=== PATIENT | female | born 1965 | race African-American/Black ===

== ENCOUNTER 2016-09-08 22:34 | Observation (INO) | payer OTHER ==
[~2016-09-08 22:34] MED LIST: ALBU6.7H INH; CARV12.52 PO; DARU800T PO; ELVITAB PO; LISI-360 PO; PREG100 PO; SPAC1MIS6; SULF-154 PO; ZOVI200C24 PO
[2016-09-08 22:42] VITALS: BP 193/80; PULSE 97; RESP 18; TEMP 97.8; O2SAT 99
[2016-09-08] MEDS ORDERED: ALBU6.7H INH (23:01)
[2016-09-08] MEDS ORDERED: LISI10TA3 PO (23:02)
[2016-09-08] MEDS ORDERED: CARV12.52 PO (23:02)
[2016-09-08] MEDS ORDERED: LYRI100C PO (23:03)
[2016-09-08] MEDS ORDERED: DARU800T PO (23:03)
[2016-09-08] MEDS ORDERED: ELVI1TAB3 PO (23:04)
[2016-09-08 23:05] VITALS: BP 190/111; PULSE 64; RESP 22; O2SAT 97
[2016-09-08 23:12] VITALS: O2SAT 97
[2016-09-08] MEDS ORDERED: ASPIRIN 81 MG CHEW TAB PO ONE (23:15)
[2016-09-08] MEDS ORDERED: SODIUM CHLORIDE 0.9% FLUSH 5 ML FLUSH IVF PRN (23:15)
[2016-09-08] MEDS: NITROGLYCERIN 0.4 MG SL 25 TABS/BTL SL SCH ×3 (23:20→23:26)
[2016-09-08 23:46] VITALS: BP 159/97
--- NOTE | 2016-09-08 23:47 | RADRPT ---
EXAM DATE/TIME: 09/08/2016 23:25 [facility] COMPARISON: CHEST SINGLE AP, December 08, 2015, 10:35. INDICATIONS : Shortness of breath with chest pain. MEDICAL HISTORY : Chronic obstructive pulmonary disease. Asthma SURGICAL HISTORY : section. Hysterectomy. ENCOUNTER: Initial ACUITY: 1 day PAIN SCORE: 6/10 LOCATION: Bilateral chest FINDINGS: A single view of the chest demonstrates the lungs to be symmetrically aerated without evidence of mas s, infiltrate or effusion. The cardiomediastinal contours are unremarkable. Osseous structures are intact. CONCLUSION: The lungs are clear. Jeremías Hsu MD on September 08, 2016 at 23:45 Board Certified Radiologist. This report was verified electronically.
--- NOTE | 2016-09-08 23:48 | PD ---
HPI Chief Complaint: Chest Pain Time Seen by Provider: 23:08 Travel History International Travel<30 days: No Contact w/Intl Traveler<30days: No Traveled to known affect area: No History of Present Illness HPI 50 year-old female presents to the emergency department by private transportation for complaint of left-sided chest pain radiating to the left upper extremity since 9:30 PM. Patient took 81 mg of aspirin prior to arrival to the emergency department. Patient notes a taking a deep breath worsens the pain as well as palpation of the anterior chest wall. No prior history of CAD. Patient rates pain 10 over 10 in intensity. Patient is unable to identify alleviating factors. Patient has history of hypertension dyslipidemia diabetes COPD HIV CVA sleep apnea and migraines. PFSH Past Medical History Narrative Medical hypertension dyslipidemia diabetes COPD HIV CVA sleep apnea migraines Asthma: Yes Autoimmune Disease: No Blood Disorders: No Cancer: Yes (Cervical, cone bx) Cardiovascular Problems: Yes (TACHYCARDIA) COPD: Yes Cerebrovascular Accident: Yes Diabetes: Yes (INSULIN DEPENDENT) Patient Takes Glucophage: No Diminished Hearing: No Endocrine: Yes Gastrointestinal Disorders: Yes (SBO) GERD: No Genitourinary: No Headaches: Yes Hiatal Hernia: No Hypertension: Yes Immune Disorder: Yes ( HIV) Implanted Vascular Access Dvce: No Musculoskeletal: No Neurologic: Yes (Neuropathy (R) leg) Psychiatric: No Reproductive: No Respiratory: Yes (PNA/COPD/ASTHMA) Immunizations Current: Yes Migraines: Yes Seizures: Yes Sleep Apnea: Yes (CPAP at night) Thyroid Disease: No Ulcer: No Tetanus Vaccination: > 5 Years Influenza Vaccination: Yes ?: Unknown Menopausal: Yes : 4 Para: 3 Miscarriage: 1 Past Surgical History Abdominal Surgery: Yes (SBO w/ resection & appy) AICD: No Appendectomy: Yes Arteriovenous Shunt: No Cardiac Surgery: No Section: Yes Cholecystectomy: Yes Ear Surgery: Yes Endocrine Surgery: No Eye Surgery: No Genitourinary Surgery: No Gynecologic Surgery: Yes ( & HYSTERECTOMY) Hysterectomy: Yes Insulin Pump: No Joint Replacement: No Neurologic Surgery: No Oral Surgery: No Pacemaker: No Thoracic Surgery: No Tympanostomy Tube: Yes ((R) tube removed) Other Surgery: Yes Social History Alcohol Use: No Tobacco Use: No Substance Use: No Allergies-Medications (Allergen,Severity, Reaction): Coded Allergies: Penicillin (Verified Allergy, Severe, RASH, TONGUE SWELLS, 09/08/16) Tolerates Rocephin Ultram (Verified Allergy, Intermediate, ABDOMINAL PAIN, 09/08/16) Codeine (Verified Allergy, Mild, VOMITING, 09/08/16) Tomato (Verified Allergy, Mild, RASH, 09/08/16) *MDRO Multi-Drug Resistant Organism (Verified Adverse Reaction, Unknown, ) MRSA (buttock wound) - 11/24/08 MRSA (sputum) - 09/23/09 MRSA PCR (nares) negative - 12/02/15 & 12/06/15 Cleared per Infection Control Reported Meds & Prescriptions Reported Meds & Active Scripts Active Reported Genvoya (Xhauicopbtok-Xvpswoqgfy-Jbtpondhwauj-Tenofvir) [id number] Mg Tab 1 Tab PO DAILY Lyrica (Pregabalin) 100 Mg Cap 100 Mg PO DAILY Prezista (Darunavir) 800 Mg Tab 800 Mg PO DAILY Lisinopril 10 Mg Tab 10 Mg PO BID Carvedilol 12.5 Mg Tab 12.5 Mg PO BID Proventil Hfa 6.7 GM Inh (Albuterol Sulfate) 90 Mcg/Act Aer 1 Puff INH Q4H PRN Review of Systems Except as stated in HPI: all other systems reviewed are Neg Physical Exam Narrative GENERAL: Well-developed well-nourished anxious appearing female in no respiratory distress SKIN: Warm and dry. HEAD: Normocephalic. EYES: No scleral icterus. No injection or drainage. NECK: Supple, trachea midline. No JVD or lymphadenopathy. CARDIOVASCULAR: Regular rate and rhythm without murmurs, gallops, or rubs. Chest wall: No ecchymosis no induration no erythema no vesicular rash no abrasion no crepitus no subcutaneous emphysema reproducible tenderness to direct palpation of the left anterior chest wall that reproduces and exacerbates pain of presentation RESPIRATORY: Breath sounds equal bilaterally. No accessory muscle use. GASTROINTESTINAL: Abdomen soft, non-tender, nondistended. MUSCULOSKELETAL: No cyanosis, or edema. Bilateral radial and dorsalis pedis pulses 2+ to palpation BACK: Nontender without obvious deformity. No CVA tenderness. Data Data Last Documented VS Vital Signs Date Time Temp Pulse Resp B/P Pulse Ox O2 Delivery O2 Flow Rate FiO2 09/08/16 23:46 159/97 09/08/16 23:46 98 Room Air 09/08/16 23:05 64 22 09/08/16 22:42 97.8 Orders Electrocardiogram (09/08/16 23:08) Basic Metabolic Panel (Bmp) (09/08/16 23:08) Ckmb (Isoenzyme) Profile (09/08/16 23:08) Complete Blood Count With Diff (09/08/16 23:08) Magnesium (Mg) (09/08/16 23:08) Prothrombin Time / Inr (Pt) (09/08/16 23:08) Act Partial Throm Time (Ptt) (09/08/16 23:08) Troponin I (09/08/16 23:08) Chest, Single Ap (09/08/16 23:08) Ecg Monitoring (09/08/16 23:08) Bilateral Bp Monitoring (09/08/16 23:08) Iv Access Insert/Monitor (09/08/16 23:08) Oximetry (09/08/16 23:08) Oxygen Administration (09/08/16 23:08) Aspirin Chew (Aspirin Chew) (09/08/16 23:15) Sodium Chloride 0.9% Flush (Ns Flush) (09/08/16 23:15) Nitroglycerin Sl (Nitrostat Sl) (09/08/16 23:15) CKMB (09/08/16 23:15) CKMB% (09/08/16 23:15) Nitroglycerin 2% Oint (Nitroglycerin 2% (09/09/16 00:45) Labs Laboratory Tests Test 09/08/16 23:15 White Blood Count 7.3 TH/MM3 Red Blood Count 4.68 MIL/MM3 Hemoglobin 13.2 GM/DL Hematocrit 39.6 % Mean Corpuscular Volume 84.7 FL Mean Corpuscular Hemoglobin 28.2 PG Mean Corpuscular Hemoglobin 33.3 % Concent Red Cell Distribution Width 14.6 % Platelet Count 176 TH/MM3 Mean Platelet Volume 11.3 FL Neutrophils (%) (Auto) 29.4 % Lymphocytes (%) (Auto) 61.6 % Monocytes (%) (Auto) 7.8 % Eosinophils (%) (Auto) 0.4 % Basophils (%) (Auto) 0.8 % Neutrophils # (Auto) 2.2 TH/MM3 Lymphocytes # (Auto) 4.5 TH/MM3 Monocytes # (Auto) 0.6 TH/MM3 Eosinophils # (Auto) 0.0 TH/MM3 Basophils # (Auto) 0.1 TH/MM3 CBC Comment AUTO DIFF Differential Comment AUTO DIFF CONFIRMED Prothrombin Time 10.7 SEC Prothromb Time International 1.0 RATIO Ratio Activated Partial 24.7 SEC Thromboplast Time Sodium Level 142 MEQ/L Potassium Level 4.7 MEQ/L Chloride Level 112 MEQ/L Carbon Dioxide Level 21.1 MEQ/L Anion Gap 9 MEQ/L Blood Urea Nitrogen 21 MG/DL Creatinine 1.38 MG/DL Estimat Glomerular Filtration 49 ML/MIN Rate Random Glucose 94 MG/DL Calcium Level 8.9 MG/DL Magnesium Level 1.8 MG/DL Total Creatine Kinase 528 U/L Creatine Kinase MB 2.4 NG/ML Creatine Kinase MB % 0.5 % Troponin I LESS THAN 0.02 NG/ML MDM Medical Decision Making Medical Screen Exam Complete: Yes Emergency Medical Condition: Yes Medical Record Reviewed: Yes Interpretation(s) EKG normal sinus rhythm no acute ST elevation or injury pattern change noted Differential Diagnosis Chest pain, ACS, VA, atypical chest pain, PE, shingles, pleurisy, costochondritis, pneumonia, pneumothorax, esophageal spasm Narrative Course Patient placed on dispatch clerk IV access obtained patient administered aspirin and several nitroglycerin @ 12:35 patient reports she feels much improved Diagnosis Primary Impression: Chest pain Additional Impression: Renal insufficiency Delores Jones MD Sep 08, 2016 23:48
[2016-09-08 23:56] LABS: AUTOMATED NEUTROPHIL # 2.2 TH/MM3 (1.8-7.7); BASOPHIL # 0.1 TH/MM3 (0-0.2); BASOPHIL % 0.8 % (0.0-2.0); EOSINOPHIL % 0.4 % (0.0-4.0); HEMATOCRIT 39.6 % (35.0-46.0); LYMPH % 61.6 % (9.0-44.0); LYMPHOCYTE # 4.5 TH/MM3 (1.0-4.8); MEAN CELL VOLUME 84.7 FL (80.0-100.0); MEAN CORPUSCULAR HEMOGLOBIN 28.2 PG (27.0-34.0); MEAN CORPUSCULAR HGB CONC 33.3 % (32.0-36.0); MONO % 7.8 % (0.0-8.0); NEUT % 29.4 % (16.0-70.0); PLATELET COUNT 176 TH/MM3 (150-450); RED BLOOD COUNT 4.68 MIL/MM3 (4.00-5.30); RED CELL DISTRIBUTION WIDTH 14.6 % (11.6-17.2); WHITE BLOOD COUNT 7.3 TH/MM3 (4.0-11.0)
[2016-09-09] VITALS (9 sets, daily range): BP systolic 136–176; BP diastolic 75–108; PULSE 54–62; RESP 14–22; TEMP 97.8; O2SAT 96–98
[2016-09-09 00:02] LABS: HEMO FLAGS AUTO DIFF
[2016-09-09 00:11] LABS: APTT (PATIENT) 24.7 SEC (24.3-30.1); PROTHROMBIN TIME - PATIENT 10.7 SEC (9.8-11.6)
[2016-09-09 00:23] LABS: ANION GAP 9 MEQ/L (5-15); BICARBONATE 21.1 MEQ/L (21.0-32.0); BLOOD UREA NITROGEN 21 MG/DL (7-18); CHLORIDE 112 MEQ/L (98-107); CREATINE KINASE 528 U/L (26-192); GLOMERULAR FILTRATION RATE 49 ML/MIN (>89); MAGNESIUM 1.8 MG/DL (1.5-2.5); POTASSIUM 4.7 MEQ/L (3.5-5.1); SODIUM (NA) 142 MEQ/L (136-145)
[2016-09-09 00:36] LABS: CKMB 2.4 NG/ML (0.5-3.6)
[2016-09-09 00:38] LABS: SCAN/DIFF AUTO DIFF CONFIRMED
[2016-09-09] MEDS ORDERED: NITROGLYCERIN 2% OINT 1 GM PACKET TOPICAL ONE (00:45)
[2016-09-09] MEDS ORDERED: SODIUM CHLORID 0.9% 500 ML INJ 500 ML IV ONE (01:15)
[2016-09-09] MEDS ORDERED: SODIUM CHLORIDE 0.9% FLUSH 5 ML FLUSH IVF PRN ×2 (01:30)
[2016-09-09 03:26] LABS: CREATINE KINASE 400 U/L (26-192)
[2016-09-09 06:15] LABS: CREATINE KINASE 437 U/L (26-192)
[2016-09-09 06:27] LABS: CKMB 1.6 NG/ML (0.5-3.6)
[2016-09-09] MEDS: NITROGLYCERIN 2% OINT 1 GM PACKET TOP SCH ×2 (07:05→12:00)
[2016-09-09] MEDS ORDERED: SODIUM CHLORIDE 0.9% FLUSH 5 ML FLUSH IVF SCH ×2 (09:00)
[2016-09-09] MEDS ORDERED: LYRI100C PO (09:13)
[2016-09-09] MEDS ORDERED: ADVI200C5 PO (09:14)
[2016-09-09] MEDS ORDERED: RESP: ALBUTEROL 2.5 MG/IPRATROPIUM 0.5 MG NEB (PRN) INH (10:00)
[2016-09-09] MEDS ORDERED: IBUPROFEN 600 MG TAB PO ONE (10:00)
[2016-09-09] MEDS ORDERED: cloNIDine HCL 0.1 MG TAB PO PRN (10:00)
[2016-09-09] MEDS ORDERED: DARUNAVIR 800 MG TAB PO SCH (10:00)
[2016-09-09] MEDS ORDERED: LISINOPRIL 10 MG TAB PO SCH (11:00)
--- NOTE | 2016-09-09 12:18 | EKG ---
Date Performed: 09/08/2016 Time Performed: 22:56:19 PTAGE: 50 years EKG: Sinus rhythm NORMAL ECG PREVIOUS TRACING : 11/29/2015 17.03 DOCTOR: Doug Sheppard Interpretating Date/Time 09/09/2016 12:16:41
--- NOTE | 2016-09-09 12:23 | EKG ---
Date Performed: 09/09/2016 Time Performed: 02:32:46 PTAGE: 50 years EKG: SINUS BRADYCARDIA SEPTAL MYOCARDIAL INFARCTION PROBABLE LATERAL MYOCARDIAL INFARCTION NONSP ECIFIC ST&T WAVE CHANGES ABNORMAL ECG PREVIOUS TRACING : 09/08/2016 22.56 DOCTOR: Doug Sheppard Interpretating Date/Time 09/09/2016 12:23:04
[2016-09-09] MEDS ORDERED: REGADENOSON INJ 0.4 MG/5 ML SYR ONE (12:24)
--- NOTE | 2016-09-09 12:26 | EKG ---
Date Performed: 09/09/2016 Time Performed: 04:04:34 PTAGE: 50 years EKG: SINUS BRADYCARDIA NONSPECIFIC T-WAVE ABNORMALITY BORDERLINE ECG PREVIOUS TRACING : 09/09/2016 02.32 DOCTOR: Doug Sheppard Interpretating Date/Time 09/09/2016 12:24:20
--- NOTE | 2016-09-09 12:26 | EKG ---
Date Performed: 09/09/2016 Time Performed: 05:19:26 PTAGE: 50 years EKG: SINUS BRADYCARDIA NONSPECIFIC T-WAVE ABNORMALITY BORDERLINE ECG PREVIOUS TRACING : 09/09/2016 02.32 DOCTOR: Doug Sheppard Interpretating Date/Time 09/09/2016 12:25:17
[2016-09-09] MEDS ORDERED: PREGABALIN 100 MG CAP PO SCH (13:00)
--- NOTE | 2016-09-09 13:50 | TR ---
Date Performed: 09/09/2016 Time Performed: 12:35:49 DOCTOR: Doug Sheppard DRUG LIST: CLINICAL HISTORY: CHEST PAIN REASON FOR TEST: CHEST PAIN REASON FOR ENDING: OBSERVATION: CONCLUSION: Lexiscan stress test was performed under standard four minute protocol. Radionuclide was injected one minute prior to ending the test. Developed racing heart, warm feeling and headache; blood pressure was mildly elevated. No electrocardiographic abnormalities were present to suggest is chemia. Recovery was quick and uneventful with resolution of symptoms, blood pressure returned to nor mal. Nuclear imaging and interpretation are pending. COMMENTS:
--- NOTE | 2016-09-09 13:55 | RADRPT ---
EXAM DATE/TIME: 09/09/2016 11:51 [facility] COMPARISON: MYOCARDIAL PERF PHARM SPECT, GATED W/EF, September 24, 2013, 9:09. INDICATIONS : Left sided chest pain radiating to left arm. Angina. DOSE: 32.1 mCi Tc99m Myoview at stress. 9.6 mCi Tc99m Myoview at rest. 0.4 mg Lexiscan STRESS SYMPTOMS: Heart racing, warm feeling and headache. EJECTION FRACTION: 59% MEDICAL HISTORY : HIV. Hypertension. Diabetes mellitus type 2. SURGICAL HISTORY : Appendectomy. Cholecystectomy. Hysterectomy. ENCOUNTER: Initial ACUITY: 1 day PAIN SCALE: 10/10 LOCATION: Left chest TECHNIQUE: The patient underwent pharmacologic stress with infusion of prescribed dose. Continuous ECG tracing was monitored during stress. Gated SPECT imaging was performed after stress and conventional SPECT i maging was performed at rest. The examination was performed on a SPECT/CT scanner, both attenuation and non-corrected datasets were reviewed. FINDINGS: DISTRIBUTION: The maximum perfused segment at stress is in the anterolateral wall. PERFUSION STUDY: The pattern of perfusion at stress is within normal limits. GATED STUDY: There is intact wall motion and thickening without hypokinetic or dyskinetic segments. CONCLUSION: 1. No left ventricle perfusion abnormality is identified. 2. No wall motion abnormality is identified. Calculated ejection fraction is 59%. RISK CATEGORY: Low (<1% Annual Mortality Rate) Maurice Wallis MD on September 09, 2016 at 13:51 Board Certified Radiologist. This report was verified electronically.
[2016-09-09] MEDS ORDERED: GENVOYA PO SCH (16:00)
[2016-09-09] MEDS ORDERED: AMLO5TAB2 PO (16:53)
--- NOTE | 2016-09-09 16:54 | HHI.DCPOC ---
Discharge Care Plan Diagnosis: (1) Chest pain (2) Hypertension (3) Renal insufficiency Goals to Promote Your Health * To prevent worsening of your condition and complications * To maintain your health at the optimal level Directions to Meet Your Goals Take your medications as prescribed Follow your dietary instruction Follow activity as directed Keep your appointments as scheduled Take your immunizations and boosters as scheduled If your symptoms worsen call your PCP, if no PCP go to Urgent Care Center or Emergency Room Smoking is Dangerous to Your Health. Avoid second hand smoke Call the 24-hour hour crisis hotline for domestic abuse at Jay Valle Sep 09, 2016 16:54
[2016-09-09] MEDS ORDERED: CARVEDILOL 12.5 MG TAB PO SCH (21:00)
--- NOTE | 2016-09-11 09:33 | MH ---
cc: ARABELLA PALM DATE OF ADMISSION: 09/09/2016 CHIEF COMPLAINT Chest pain HISTORY OF PRESENT ILLNESS 50-year-old female who presents to the ED via private vehicle with complaint of following a tightness and left upper chest region to left shoulder around 2119 last evening. She was getting out of the shower when it occurred. It continued lasted she got into the emergency room. She states she was given sublingual nitroglycerin in the emergency room and then it resolved pretty soon after that. She believes it lasted about an hour. She was a little nauseous, there is no diaphoresis. She states it really hurt when that doctor pressed on her chest in the emergency room. Denies history of coronary artery disease. She believes she had a stress test a couple of years ago and that it was okay. Denies recent illnesses. The patient has been compliant with medications. PAST HISTORY Hypertension. Sleep apnea. She has had pneumonia several times. Chronic obstructive pulmonary disease. HIV diagnosed in 1988. She has post herpetic neuralgia her right leg and takes Lyrica for this. Denies diabetes, hyperlipidemia and known coronary artery disease. FAMILY HISTORY Her father had onset coronary artery disease in his 40s, he at age 75 of myocardial infarction. SOCIAL HISTORY She is a nonsmoker, denies alcohol or illicit drugs. PAST SURGICAL HISTORY Small bowel obstruction with resection in 1985 when she was 20, Hysterectomy cholecystectomy ALLERGIES CODEINE PENICILLIN ULTRAM TOMATOES HISTORY OF MRSA CURRENT MEDICATIONS 1. Lisinopril. 2. Lyrica. 3. Prezista 4. Genvoya 5. Carvedilol. 6. Ibuprofen. 7. Albuterol inhaler. REVIEW OF SYSTEMS GENERAL: Denies fevers or chills. Denies recent illnesses. HEAD, EYES, EARS, NOSE, AND THROAT: Denies headache or sore throat difficulty swallowing. CARDIOVASCULAR SYSTEM: Describes the discomfort as mentioned above. Denies diaphoresis. Denies sensation of a rapidly regular. No syncope. RESPIRATORY: She was short of breath. No inspirational chest comfort denies coughing, wheezing or hemoptysis. GASTROINTESTINAL: She had some nausea but denies emesis. Denies abdominal pain. Denies diarrhea, constipation or blood in stool. MUSCULOSKELETAL: Denies joint pain or edema. Denies calf pain or edema. NEUROVASCULAR: She complains of neuropathy type of discomfort in right leg status post shingles. EXTREMITIES: Denies weakness in extremities. ENDOCRINE: Denies by polydipsia, polydipsia. HEMATOLOGIC: Denies easy bruising. SKIN: Denies rash or itching. PHYSICAL EXAMINATION VITAL SIGNS: In the fresh include blood pressure 193/80, heart 77, respirations 18, pulse oximetry 9 inches room air and she was afebrile. Most recent vital signs include blood pressure 150/86, heart 55, respirations 18, pulse oximetry 96% room air. GENERAL: The patient seen in the examination room in no apparent distress. She is very pleasant. She speaks in clear and complete sentences. HEAD, EYES, EARS, NOSE, AND THROAT: Head is atraumatic, normocephalic. NECK: Neck is supple without lymphadenopathy. Trachea is no JVD or carotid bruits. CARDIOVASCULAR SYSTEM: Regular rate and rhythm without murmur. RESPIRATORY: Lungs are clear to auscultation bilaterally. No wheezing, rales or rhonchi. No use of muscles. Her chest wall is rather easily Sharon chest wall discomfort is abuse easily reproducible. Light palpation that. She states it was actually much more tender last evening in the ER when she was initially examined. GASTROINTESTINAL: Abdomen is nontender, nondistended. Bowel sounds are normal. No guarding or rebound. No obvious pulsatile mass or bruit. No CVA tenderness. Strong femoral pulses bilaterally. MUSCULOSKELETAL: Patient moving upper and lower extremities freely. No joint tenderness or edema. No calf tenderness or edema, Homans' sign. Strong pulses in upper and lower extremities. NEUROLOGIC: The patient is alert and oriented. Cranial nerves II-XII grossly intact. No focal deficits and speech is clear. SKIN: No rash and turgor is normal. LABORATORY DATA CBC is unremarkable. Coagulation studies unremarkable. Basic metabolic panel has occurred elevated 1.3, BUN elevated 21, GFR decreased 49. Serial cardiac enzymes. X-RAYS Normal x3. CPK is elevated 520, for a, 437. A single view chest x-ray read by radiologist as lungs are clear. EKG's have sinus bradycardia with nonspecific lateral ST-T changes. ASSESSMENT 1. Chest pain: The patient has serial cardiac enzymes and EKG's for ruling out purposes. She will be seen by Dr. Quiroz in chest pain center. Undergo Lexiscan and if that were to be nonischemic. She will be discharged home with instructions to follow up with her local physician. 2. Hypertension: Continue medication 3. HIV: Continue current medications. 4. Post erratic neurology: Continue current medication 5. Sleep apnea: The patient continue her sleep C-PAP device at home. She states she did not sleep well last night as she does not have it here. 6. Renal insufficiency: The patient was given IV hydration in the emergency room. The patient follows with her physician. 7. The patient is stable at time she is agreeable to this plan. DICTATED BY: Jay Valle PA-C MD DALJIT Montes De Oca/almita /12:05 PM /9:29 AM
== END 2016-09-09 18:04 | disposition home or self-care (01) ==
LOC: NEPC 22:34 → NEDA 09-09 01:28 → NEDH 09-09 07:03 → NEPFCDU 09-09 09:07
PROVIDERS: ADMIT Internal Medicine Interventional Cardiology; ATTEND Internal Medicine Interventional Cardiology
DX: R07.89 Other chest pain (principal); I10 Essential (primary) hypertension; N28.9 Disorder of kidney and ureter, unspecified; B20 Human immunodeficiency virus [HIV] disease; R94.31 Abnormal electrocardiogram [ECG] [EKG]; E11.9 Type 2 diabetes mellitus without complications; E78.5 Hyperlipidemia, unspecified; G47.30 Sleep apnea, unspecified; J44.9 Chronic obstructive pulmonary disease, unspecified; J45.909 Unspecified asthma, uncomplicated; Z79.4 Long term (current) use of insulin; Z86.73 Personal history of transient ischemic attack (TIA), and cerebral infarction without residual deficits
CPT/HCPCS: 71010; 78452; 80048; 82550; 82552; 83735; 84484; 85025; 85610; 85730; 93005; 93017; 99285; A9502; G0378; J2785; J7040

== ENCOUNTER 2016-11-20 09:10 | Emergency (ER) | payer OTHER ==
[~2016-11-20 09:10] MED LIST changes: +ADVI200C5 PO; +AMLO5TAB2 PO; +ELVI1TAB3 PO; -ELVITAB PO; -LISI-360 PO; +LISI10TA3 PO; +LYRI100C PO; -PREG100 PO; -SPAC1MIS6; -SULF-154 PO; -ZOVI200C24 PO
[2016-11-20 09:12] VITALS: BP 160/99; PULSE 74; RESP 24; TEMP 97.8; O2SAT 96
[2016-11-20] MEDS ORDERED: ROBA500T PO (10:10)
[2016-11-20] MEDS ORDERED: ACET500T3 PO (10:11)
--- NOTE | 2016-11-20 10:11 | PD ---
HPI Chief Complaint: Back/ Neck Pain or Injury Time Seen by Provider: 10:07 Travel History International Travel<30 days: No Contact w/Intl Traveler<30days: No Traveled to known affect area: No History of Present Illness HPI 51-year-old female, with history of chronic low back pain, presents to the emergency Department with complaint of left-sided low back pain that radiates down the back of her left leg since Sunday. Denies new or recent injury. Denies encopresis, incontinence, saddle anesthesias. Denies fever, chills, nausea, vomiting, abdominal pain. Denies paresthesias, loss of sensation, decreased range of motion, decreased strength to bilateral lower extremity. Denies urinary urgency, frequency, hematuria, dysuria. Denies IV drug use or cancer. Reports being ambulatory with limp to left side. Says she gets injections in her lower back for pain; last received an injection approximately one year ago. Used to see pain management but is currently seeking another pain doctor. Has taken Tylenol with good relief of symptoms. Pain is aggravated with walking, movement, palpation. Pain is decreased when in standing position. Dr. Hunter is primary care provider. Allergies to codeine, morphine, penicillin, tomato, Ultram. History of hypertension and HIV. No other modifying factors or associated signs and symptoms. PFSH Past Medical History Asthma: Yes Autoimmune Disease: No Blood Disorders: No Heart Rhythm Problems: No Cancer: Yes (Cervical, cone bx) Cardiovascular Problems: Yes (htn) High Cholesterol: No Congestive Heart Failure: No COPD: Yes Cerebrovascular Accident: Yes Diabetes: Yes (INSULIN DEPENDENT) Diminished Hearing: No Endocrine: Yes Gastrointestinal Disorders: Yes (SBO) GERD: No Genitourinary: No Headaches: Yes Hiatal Hernia: No Hypertension: Yes Immune Disorder: Yes ( HIV) Implanted Vascular Access Dvce: No Musculoskeletal: No Neurologic: Yes (Neuropathy (R) leg) Psychiatric: No Reproductive: No Respiratory: Yes (PNA/COPD/ASTHMA) Immunizations Current: Yes Migraines: Yes Seizures: Yes Sleep Apnea: Yes (CPAP at night) Thyroid Disease: No Ulcer: No Menopausal: Yes : 4 Para: 3 Miscarriage: 1 Past Surgical History Abdominal Surgery: Yes (SBO w/ resection & appy) AICD: No Appendectomy: Yes Arteriovenous Shunt: No Cardiac Surgery: No Section: Yes Cholecystectomy: Yes Ear Surgery: Yes Endocrine Surgery: No Eye Surgery: No Genitourinary Surgery: No Gynecologic Surgery: Yes ( & HYSTERECTOMY) Hysterectomy: Yes Insulin Pump: No Joint Replacement: No Neurologic Surgery: No Oral Surgery: No Pacemaker: No Thoracic Surgery: No Tympanostomy Tube: Yes ((R) tube removed) Other Surgery: Yes Social History Alcohol Use: No Tobacco Use: No Substance Use: No Allergies-Medications (Allergen,Severity, Reaction): Coded Allergies: Penicillin (Verified Allergy, Severe, RASH, TONGUE SWELLS, 11/20/16) Tolerates Rocephin Morphine (Verified Allergy, Intermediate, itch, vomit, 11/20/16) Ultram (Verified Allergy, Intermediate, ABDOMINAL PAIN, 11/20/16) Codeine (Verified Allergy, Mild, VOMITING, 11/20/16) Tomato (Verified Allergy, Mild, RASH, 11/20/16) *MDRO Multi-Drug Resistant Organism (Verified Adverse Reaction, Unknown, ) MRSA (buttock wound) - 11/24/08 MRSA (sputum) - 09/23/09 MRSA PCR (nares) negative - 12/02/15 & 12/06/15 Cleared per Infection Control Reported Meds & Prescriptions Reported Meds & Active Scripts Active Acetaminophen 500 Mg Tab 500 Mg PO Q6H PRN Robaxin (Methocarbamol) 500 Mg Tab 500 Mg PO QID PRN Amlodipine (Amlodipine Besylate) 5 Mg Tab 5 Mg PO DAILY Reported Advil (Ibuprofen) 200 Mg Cap 200 Mg PO QID PRN Lyrica (Pregabalin) 100 Mg Cap 100 Mg PO TID Genvoya (Boytqqbppkul-Shfckugdrd-Wfiychysrwuz-Tenofvir) [phone] Mg Tab 1 Tab PO DAILY Prezista (Darunavir) 800 Mg Tab 800 Mg PO DAILY Lisinopril 10 Mg Tab 10 Mg PO BID Carvedilol 12.5 Mg Tab 12.5 Mg PO BID Proventil Hfa 6.7 GM Inh (Albuterol Sulfate) 90 Mcg/Act Aer 1 Puff INH Q4H PRN Review of Systems Except as stated in HPI: all other systems reviewed are Neg Physical Exam Narrative GENERAL: Well-nourished, well-developed female patient, in no acute distress; afebrile, nontoxic-appearing SKIN: Warm and dry. HEAD: Atraumatic. Normocephalic. EYES: Pupils equal and round. No scleral icterus. No injection or drainage. ENT: Mucosa pink and moist. Airway patent. NECK: Trachea midline. CARDIOVASCULAR: Regular rate. RESPIRATORY: No accessory muscle use. GASTROINTESTINAL: Obese. MUSCULOSKELETAL: Bilateral lower extremities supple and non-tense with 2+ pedal pulses and sensory intact; with full range of motion and 5/5 strength. 2 + DTRs bilaterally. Active dorsiflexion and extension of bilateral feet. Ambulatory with guarded gait to the left lower extremity in the room. Sitting up in bed at 90. No obvious deformities. No clubbing. No cyanosis. No edema. BACK: No CVA tenderness. No midline point tenderness on palpation of the lumbar spine. Tenderness on palpation of left iliosacral area. No obvious deformities. NEUROLOGICAL: Awake and alert. Oriented 3. No obvious cranial nerve deficits. Motor grossly within normal limits. Normal speech. Moves all extremities. 5/5 strength to all extremities. Sensory intact. PSYCHIATRIC: Appropriate mood and affect; insight and judgment normal. Data Data Last Documented VS Vital Signs Date Time Temp Pulse Resp B/P Pulse Ox O2 Delivery O2 Flow Rate FiO2 11/20/16 09:12 97.8 74 24 160/99 96 Room Air Orders Ketorolac Inj (Toradol Inj) (11/20/16 10:15) Orphenadrine Inj (Norflex Inj) (11/20/16 10:15) [facility] Medical Decision Making Medical Screen Exam Complete: Yes Emergency Medical Condition: Yes Medical Record Reviewed: Yes Differential Diagnosis Acute exacerbation of chronic low back pain, sciatica, low back strain Narrative Course 51-year-old female with history of chronic low back pain with acute exacerbation of chronic low back pain and left-sided sciatica. Denies encopresis, incontinence, saddle anesthesias. No midline point tenderness on palpation of the lumbar spine. Patient is ambulatory in the room with guarded gait. Denies IV drug use, cancer. Patient is afebrile and nontoxic-appearing. She denies fever, chills, nausea, vomiting. Dr. Hunter's primary care provider. Toradol and Norflex administered in the ER. Acetaminophen and Robaxin prescribed for home. Patient verbalizes understanding and agreement with treatment plan. Patient is medically cleared and stable for discharge. Discussed reasons to return to the emergency department. Instructed patient to follow up with primary care provider. Patient agrees with treatment plan. The patients vital signs are stable and the patient is stable for outpatient follow- up and treatment. Patient discharged home, stable and in no acute distress. Diagnosis Primary Impression: Acute exacerbation of chronic low back pain Additional Impression: Left-sided low back pain with sciatica Qualified Code: M54.42 - Left-sided low back pain with left-sided sciatica, unspecified chronicity Referrals: Primary Care Physician Patient Instructions: Acute Low Back Pain (ED), General Instructions, Sciatica (ED) Departure Forms: Tests/Procedures, Work Release Enter return to work date: Nov 22, 2016 Additional Instructions: Tylenol as directed and as needed for pain Robaxin as prescribed and as needed for muscle spasm Heating pad and/or ice to affected area to reduce pain Avoid aggravating activities; increase activity as tolerated Follow-up with primary care provider Return to emergency department immediately with worsening of symptoms Med/Other Pt SpecificInfo: Prescription(s) given Scripts Acetaminophen 500 Mg [id number] Mg PO Q6H PRN (PAIN SCALE 1 TO 10) #20 TAB Ref 0 Prov:Sobia Blunt 11/20/16 Methocarbamol (Robaxin)500 Mg [id number] Mg PO QID PRN (MUSCLE SPASM) #30 TAB Ref 0 Prov:Sobia Blunt 11/20/16 Disposition: 01 DISCHARGE HOME Condition: Stable Sobia Blunt Nov 20, 2016 10:11
[2016-11-20] MEDS ORDERED: ORPHENADRINE INJ 60 MG/2 ML AMP IM ONE (10:15)
[2016-11-20] MEDS ORDERED: KETOROLAC TROMETHAMINE 60 MG/2 ML (IM) VIAL IM ONE (10:15)
== END 2016-11-20 10:49 | disposition home or self-care (01) ==
LOC: NETRI 09:10
DX: M54.42 Lumbago with sciatica, left side (principal); G89.29 Other chronic pain
CPT/HCPCS: 96372; 99282; J1885; J2360

== ENCOUNTER 2016-11-23 18:29 | Emergency (ER) | payer OTHER ==
[~2016-11-23] VITALS: Ht 160 cm; Wt 104.8 kg
[~2016-11-23 18:29] MED LIST changes: +ACET500T3 PO; +ROBA500T PO
[2016-11-23 18:34] VITALS: BP 154/102; PULSE 82; RESP 18; TEMP 98.9; O2SAT 95
--- NOTE | 2016-11-23 18:54 | PD ---
HPI Chief Complaint: ENT Complaint Time Seen by Provider: 18:54 Travel History International Travel<30 days: No Contact w/Intl Traveler<30days: No Traveled to known affect area: No History of Present Illness HPI 51-year-old female with history of HIV presents to the ED for evaluation of less than 24-hour history of sore throat and right ear pain. Patient denies headache, dizziness, sinus congestion, rhinorrhea, cough or shortness of breath , abdominal pain, nausea, vomiting. She endorses sick contacts, stating that her daughter had similar symptoms this week. She treated at home with Motrin with only mild improvement of symptoms. She states that her viral load was "undetectable" at last doctor's visit. States viral load has been undetectable for [address] Hunter. [facility] Past Medical History Asthma: Yes Autoimmune Disease: No Blood Disorders: No Heart Rhythm Problems: No Cancer: Yes (Cervical, cone bx) Cardiovascular Problems: Yes (htn) High Cholesterol: No Congestive Heart Failure: No COPD: Yes Cerebrovascular Accident: Yes Diabetes: Yes (ORAL MEDICATIONS) Diminished Hearing: No Endocrine: Yes Gastrointestinal Disorders: Yes (SBO) GERD: No Genitourinary: No Headaches: Yes Hiatal Hernia: No Hypertension: Yes Immune Disorder: Yes ( HIV) Implanted Vascular Access Dvce: No Musculoskeletal: No Neurologic: Yes (Neuropathy (R) leg) Psychiatric: No Reproductive: No Respiratory: Yes (PNA/COPD/ASTHMA) Immunizations Current: Yes Migraines: Yes Seizures: Yes Sleep Apnea: Yes (CPAP at night) Thyroid Disease: No Ulcer: No Tetanus Vaccination: < 5 Years Influenza Vaccination: Yes ?: Not Menopausal: Yes : 4 Para: 3 Miscarriage: 1 Past Surgical History Abdominal Surgery: Yes (SBO w/ resection & appy) AICD: No Appendectomy: Yes Arteriovenous Shunt: No Cardiac Surgery: No Section: Yes Cholecystectomy: Yes Ear Surgery: Yes Endocrine Surgery: No Eye Surgery: No Genitourinary Surgery: No Gynecologic Surgery: Yes ( & HYSTERECTOMY) Hysterectomy: Yes Insulin Pump: No Joint Replacement: No Neurologic Surgery: No Oral Surgery: No Pacemaker: No Thoracic Surgery: No Tympanostomy Tube: Yes ((R) tube removed) Other Surgery: Yes Social History Alcohol Use: No Tobacco Use: No Substance Use: No Allergies-Medications (Allergen,Severity, Reaction): Coded Allergies: Penicillin (Verified Allergy, Severe, RASH, TONGUE SWELLS, 11/23/16) Tolerates Rocephin Morphine (Verified Allergy, Intermediate, itch, vomit, 11/23/16) Ultram (Verified Allergy, Intermediate, ABDOMINAL PAIN, 11/23/16) Codeine (Verified Allergy, Mild, VOMITING, 11/23/16) Tomato (Verified Allergy, Mild, RASH, 11/23/16) *MDRO Multi-Drug Resistant Organism (Verified Adverse Reaction, Unknown, ) MRSA (buttock wound) - 11/24/08 MRSA (sputum) - 09/23/09 MRSA PCR (nares) negative - 12/02/15 & 12/06/15 Cleared per Infection Control Reported Meds & Prescriptions Reported Meds & Active Scripts Active Magic Mouthwash Adult Liq (Multi-Ingredient Mouthwash/Gargle) 120 Ml Susp 10 Ml SWISH-SWAL ACHS Each 5mL contains: Nystatin 200,000units, Diphenhydramine 4.25mg, Viscous Lidocaine 10mg, Winslow syrup 0.8 mL Robaxin (Methocarbamol) 500 Mg Tab 500 Mg PO QID PRN Amlodipine (Amlodipine Besylate) 5 Mg Tab 5 Mg PO DAILY Reported Lyrica (Pregabalin) 100 Mg Cap 100 Mg PO TID Genvoya (Nlntxpgmcmpr-Vzinqmvcps-Geisdkvitnkp-Tenofvir) [phone] Mg Tab 1 Tab PO DAILY Prezista (Darunavir) 800 Mg Tab 800 Mg PO DAILY Lisinopril 10 Mg Tab 10 Mg PO BID Carvedilol 12.5 Mg Tab 12.5 Mg PO BID Proventil Hfa 6.7 GM Inh (Albuterol Sulfate) 90 Mcg/Act Aer 1 Puff INH Q4H PRN Review of Systems Except as stated in HPI: all other systems reviewed are Neg Physical Exam Narrative GENERAL: Well-nourished, well-developed obese black female in no acute distress. SKIN: Focused skin assessment warm/dry. HEAD: Normocephalic. EYES: No scleral icterus. No injection or drainage. ENT: Pearly bain tympanic membranes bilaterally. Mucosa moist. Mild posterior oropharyngeal erythema. No edema. No exudates. Uvula midline. Airway patent. NECK: Supple, trachea midline. No JVD or lymphadenopathy. CARDIOVASCULAR: Regular rate and rhythm without murmurs, gallops, or rubs. RESPIRATORY: Breath sounds equal bilaterally. No accessory muscle use. GASTROINTESTINAL: Abdomen soft, non-tender, nondistended. MUSCULOSKELETAL: No cyanosis, or edema. Patient is ambulatory, moves extremities spontaneously. BACK: Nontender without obvious deformity. No CVA tenderness. Data Data Last Documented VS Vital Signs Date Time Temp Pulse Resp B/P Pulse Ox O2 Delivery O2 Flow Rate FiO2 11/23/16 18:34 98.9 82 18 154/102 95 Orders Group A Rapid Strep Screen (11/23/16 19:00) Strep Culture (Group A) (11/23/16 17:20) MDM Medical Decision Making Medical Screen Exam Complete: Yes Emergency Medical Condition: Yes Differential Diagnosis Pharyngitis versus strep pharyngitis versus influenza versus viral syndrome versus seasonal allergies versus other Narrative Course 51-year-old female with history of HIV presents to the ED for evaluation of less than 24-hour history of sore throat and right ear pain. Patient denies headache, dizziness, sinus congestion, rhinorrhea, cough or shortness of breath , abdominal pain, nausea, vomiting. She endorses sick contacts, stating that her daughter had similar symptoms this week. States viral load has been undetectable for [address] Hunter. Vitals reviewed. Physical exam reveals mild posterior oropharyngeal erythema but is otherwise unremarkable. Rapid strep swab negative. This is pharyngitis. Patient was prescribed Magic mouthwash. She is instructed to take medication as prescribed , supplement with Tylenol or Motrin, follow-up with Dr. Hunter. She indicated understanding of the instructions and is agreeable to the care plan. The patient is stable and discharged home. Diagnosis Primary Impression: Pharyngitis Qualified Code: J02.9 - Pharyngitis, unspecified etiology Referrals: Primary Care Physician Patient Instructions: General Instructions, Pharyngitis (ED) Additional Instructions: Rest, hydrate. Continue with symptomatic treatment. Magic mouthwash when necessary for sore throat. Ibuprofen or Motrin I also help to reduce her pain symptoms. The wound with warm salt water gargles may also help to reduce pain symptoms. Increase handwashing frequently to avoid the spread of the virus to other family members and the community. Disinfect commonly touched surfaces such as light switches, microwaves, remote controls. Replace toothbrush at the end of this illness. Follow-up with the primary care provider this week. Return to the ED for any urgent or emergent medical condition. Med/Other Pt SpecificInfo: Prescription(s) given Scripts Ypbwfpup-Igndsfxsfmiqijd-Motfstthe Liq (Magic Mouthwash Adult Liq)120 Ml Susp10 Ml SWISH-SWAL ACHS #120 ML Ref 0 Each 5mL contains: Nystatin 200,000units, Diphenhydramine 4.25mg, Viscous Lidocaine 10mg, Winslow syrup 0.8 mL Prov:Armani Arce MD 11/23/16 Disposition: 01 DISCHARGE HOME Condition: Stable Opal Walker Nov 23, 2016 18:54
[2016-11-23] MEDS ORDERED: MAGICADU2 SWISH-SWAL (19:42)
== END 2016-11-23 19:50 | disposition home or self-care (01) ==
LOC: PHEFT 18:29
DX: J02.9 Acute pharyngitis, unspecified (principal); H92.01 Otalgia, right ear; E11.9 Type 2 diabetes mellitus without complications; I10 Essential (primary) hypertension; G47.30 Sleep apnea, unspecified; Z21 Asymptomatic human immunodeficiency virus [HIV] infection status; Z79.84 Long term (current) use of oral hypoglycemic drugs; Z87.09 Personal history of other diseases of the respiratory system; Z86.79 Personal history of other diseases of the circulatory system; Z87.19 Personal history of other diseases of the digestive system; Z86.69 Personal history of other diseases of the nervous system and sense organs
CPT/HCPCS: 87081; 87880; 99283

== ENCOUNTER 2017-11-19 09:42 | Emergency (ER) | payer OTHER ==
[~2017-11-19] VITALS: Ht 160 cm; Wt 110.0 kg
[~2017-11-19 09:42] MED LIST changes: -ACET500T3 PO; -ADVI200C5 PO; -DARU800T PO; +DARU800T2 PO; +MAGICADU2 SWISH-SWAL
[2017-11-19 09:45] VITALS: BP 133/71; PULSE 69; RESP 16; TEMP 98.2; O2SAT 97
[2017-11-19] MEDS ORDERED: CLINDAMYCIN PHOS 600 MG/4 ML VIAL IM ONE (10:00)
[2017-11-19] MEDS ORDERED: CLIN300C5 PO (10:00)
--- NOTE | 2017-11-19 10:04 | PD ---
HPI Chief Complaint: Skin Problem Time Seen by Provider: 09:55 Travel History International Travel<30 days: No Contact w/Intl Traveler<30days: No Traveled to known affect area: No History of Present Illness HPI This is a 52-year-old female with HIV on antiretroviral therapy who has had an undetectable viral load for several years. She presents for evaluation of an area of painful skin redness and drainage on the right thoracic back region. She reports that initially started having pain in the bump in the region 3 or 4 days ago. She was seen at an urgent care center and prescribed Bactrim. She presents today because she feels like the lump burst and is draining and would like to be evaluated because she cannot see it very well because of the area that it is in. She reports that she had a fever 3 days ago but none since. Denies nausea, vomiting, abdominal pain, chest pain, shortness of breath. She has been compliant on Bactrim. No other complaints at this time. PFSH Past Medical History Asthma: Yes Autoimmune Disease: No Blood Disorders: No Heart Rhythm Problems: No Cancer: Yes (Cervical, cone bx) Cardiovascular Problems: Yes (htn) High Cholesterol: No Congestive Heart Failure: No COPD: Yes Cerebrovascular Accident: Yes Diabetes: Yes (ORAL MEDICATIONS) Diminished Hearing: No Endocrine: Yes Gastrointestinal Disorders: Yes (SBO) GERD: No Genitourinary: No Headaches: Yes Hiatal Hernia: No Hypertension: Yes Immune Disorder: Yes ( HIV) Implanted Vascular Access Dvce: No Musculoskeletal: No Neurologic: Yes (Neuropathy (R) leg) Psychiatric: No Reproductive: No Respiratory: Yes (PNA/COPD/ASTHMA) Immunizations Current: Yes Migraines: Yes Seizures: Yes Sleep Apnea: Yes (CPAP at night) Thyroid Disease: No Ulcer: No Menopausal: Yes : 4 Para: 3 Miscarriage: 1 Past Surgical History Abdominal Surgery: Yes (SBO w/ resection & appy) AICD: No Appendectomy: Yes Arteriovenous Shunt: No Cardiac Surgery: No Section: Yes Cholecystectomy: Yes Ear Surgery: Yes Endocrine Surgery: No Eye Surgery: No Genitourinary Surgery: No Gynecologic Surgery: Yes ( & HYSTERECTOMY) Hysterectomy: Yes Insulin Pump: No Joint Replacement: No Neurologic Surgery: No Oral Surgery: No Pacemaker: No Thoracic Surgery: No Tympanostomy Tube: Yes ((R) tube removed) Other Surgery: Yes Social History Alcohol Use: No Tobacco Use: No Substance Use: No Allergies-Medications (Allergen,Severity, Reaction): Coded Allergies: penicillin G (Unverified Allergy, Severe, RASH, TONGUE SWELLS, 11/19/17) Tolerates Rocephin morphine (Unverified Allergy, Intermediate, itch, vomit, 11/19/17) tramadol (Unverified Allergy, Intermediate, ABDOMINAL PAIN, 11/19/17) codeine (Unverified Allergy, Mild, VOMITING, 11/19/17) tomato (Unverified Allergy, Mild, RASH, 11/19/17) *MDRO Multi-Drug Resistant Organism (Verified Adverse Reaction, Unknown, ) MRSA (buttock wound) - 11/24/08 MRSA (sputum) - 09/23/09 MRSA PCR (nares) negative - 12/02/15 & 12/06/15 Cleared per Infection Control Reported Meds & Prescriptions Reported Meds & Active Scripts Active Clindamycin (Clindamycin HCl) 300 Mg Cap 300 Mg PO Q6H 10 Days Magic Mouthwash Adult Liq (Multi-Ingredient Mouthwash/Gargle) 120 Ml Susp 10 Ml SWISH-SWAL ACHS Each 5mL contains: Nystatin 200,000units, Diphenhydramine 4.25mg, Viscous Lidocaine 10mg, Winslow syrup 0.8 mL Robaxin (Methocarbamol) 500 Mg Tab 500 Mg PO QID PRN Amlodipine (Amlodipine Besylate) 5 Mg Tab 5 Mg PO DAILY Reported Lyrica (Pregabalin) 100 Mg Cap 100 Mg PO TID Genvoya (Gsebmjojvpab-Pesxtdlowq-Rlcnmkjctckj-Tenofvir) [phone] Mg Tab 1 Tab PO DAILY Prezista (Darunavir) 800 Mg Tab 800 Mg PO DAILY Lisinopril 10 Mg Tab 10 Mg PO BID Carvedilol 12.5 Mg Tab 12.5 Mg PO BID Proventil Hfa 6.7 GM Inh (Albuterol Sulfate) 90 Mcg/Act Aer 1 Puff INH Q4H PRN Review of Systems Except as stated in HPI: all other systems reviewed are Neg Physical Exam Narrative GENERAL: Well-developed well-nourished female no acute distress SKIN: Warm and dry. On the right thoracic back region there is an area of erythema and induration. There is a central abscess lesion which has burst and is spontaneously draining purulent material quite well. A wound culture has been performed. The area of erythema has been circled with a surgical marker. HEAD: Atraumatic. Normocephalic. EYES: Pupils equal and round. No scleral icterus. No injection or drainage. ENT: No nasal bleeding or discharge. Mucous membranes pink and moist. NECK: Trachea midline. No JVD. CARDIOVASCULAR: Regular rate and rhythm. No murmur appreciated. RESPIRATORY: No accessory muscle use. Clear to auscultation. Breath sounds equal bilaterally. Data Data Last Documented VS Vital Signs Date Time Temp Pulse Resp B/P (MAP) Pulse Ox O2 Delivery O2 Flow Rate FiO2 11/19/17 09:45 98.2 69 16 133/71 (91) 97 Orders Orders Clindamycin Inj (Cleocin Inj) (11/19/17 10:00) Wound Culture And Gram Stain (11/19/17 09:58) Ed Discharge Order (11/19/17 09:58) [facility] Medical Decision Making Medical Screen Exam Complete: Yes Emergency Medical Condition: Yes Medical Record Reviewed: Yes Differential Diagnosis Cellulitis, abscess, sepsis, erysipelas, osteomyelitis Narrative Course The area of erythema has been circled. Given her history of HIV, questionably worsening symptoms despite Bactrim therapy, I discussed the option of admitting the patient for IV antibiotic therapy pending wound culture results however she would really prefer to not be admitted at this time. The plan therefore will be to, pending culture results, add on clindamycin to medication regimen. Recommended return in 2 days for recheck and return sooner for any obvious acutely new or worsening symptoms. She is agreeable to this plan. She will be given a dose of IM clindamycin here. She is stable for discharge. Diagnosis Primary Impression: Cellulitis of back Additional Instructions: Continue Bactrim as prescribed. Clindamycin as prescribed. Warm bath 2-3 times a day 20 minutes at a time. Return in 2 days for recheck. Return sooner for any obvious acutely new or worsening symptoms. Med/Other Pt SpecificInfo: Prescription(s) given, Wound Care Scripts Clindamycin (Clindamycin) 300 Mg Cap 300 MG PO Q6H for Infection for 10 Days, #40 CAP 0 Refills Prov: Armen Dominguez MD 11/19/17 Disposition: 01 DISCHARGE HOME Condition: Stable Conor Hidalgo Nov 19, 2017 10:04
[2017-11-19] MEDS ORDERED: BACT800T5 PO (10:14)
== END 2017-11-19 10:52 | disposition home or self-care (01) ==
LOC: NEPK 09:42
DX: L03.312 Cellulitis of back [any part except buttock and flank] (principal); I10 Essential (primary) hypertension; Z21 Asymptomatic human immunodeficiency virus [HIV] infection status
CPT/HCPCS: 86403; 87070; 87186; 87205; 96372